=== PATIENT | male | born 1950 | race Caucasian/White ===

== ENCOUNTER 2022-10-23 19:53 | Emergency (ER) | payer MEDICARE, SELFPAY ==
[2022-10-23 19:54] VITALS: BP 231/154; PULSE 113; RESP 15; TEMP 38.1; O2SAT 97; BMI 40.8
[2022-10-23 20:23] VITALS: BP 230/149; PULSE 109; RESP 25; TEMP 38; O2SAT 96
[2022-10-23 20:25] LABS: Absolute Lymphocyte Count 0.73 X10^3/uL (0.83-4.51); Absolute Neutrophil Count 18.5 X10^3/uL (2.0-7.7); Basophil# 0.09 X10^3/uL; Basophil% 0.4 % (0-1); Eosinophil# 0.09 X10^3/uL; Eosinophils% 0.4 % (0-5); Hematocrit 51.7 % (40-54); Hemoglobin 17.4 g/dL (13.0-16.5); Lymphocyte # 0.73 X10^3/ul (0.83-4.51); Lymphocyte % 3.5 % (19-41); Mean Corp Hgb Conc 33.7 g/dL (32-36); Mean Corpuscular Hgb 28.9 pg (27.0-32.0); Mean Corpuscular Volume 85.9 fL (80-94); Mean Platelet Vol. 9.6 fl (6.2-12.0); Monocyte# 1.31 X10^3/uL; Monocyte% 6.3 % (0-10); NRBC Flagged by Analyzer 0 % (0-5); Neutrophil # 18.52 X10^3/uL (2.7-7.7); Neutrophil % 89.1 % (47-70); Platelet Count 403 K/mm3 (150-450); RBC Distribution Width CV 14.6 % (11.6-14.6); RBC Distribution Width SD 45.7 fl (35.1-43.9); Red Blood Count 6.02 M/mm3 (4.6-6.2); White Blood Count 20.8 K/mm3 (4.4-11.0)
[2022-10-23] MEDS: 0.9% Normal Saline 1,000 ML 999 ML IV ×2 (20:39→21:42)
--- NOTE | 2022-10-23 20:45 | RAD_ITS ---
STUDY: X-RAY CHEST REASON FOR EXAM: Male, 72 years old. Nausea and diarrhea and fever beginning today. Frequent urination. TECHNIQUE: PA and lateral views of the chest. COMPARISON: None. FINDINGS: The lungs are clear and expanded. There is no demonstrated pleural abnormality. Normal size heart. Normal mediastinum and chance. Normal visualized pulmonary arteries. There is atherosclerotic mild calcification of the aortic arch with tortuosity. There are diffuse degenerative changes of the visualized thoracic spine. There is degenerative osteoarthritis of the bilateral shoulders. There is no demonstrated abnormality of the visualized soft tissue structures of the upper abdomen. RAD/Chest PA and Lateral IMPRESSION: Degenerative changes, as described above. No demonstrated acute cardiopulmonary process. Electronically Signed: Tommy Mcleod DO at 21:00 EDT ,
[2022-10-23 20:46] LABS: AST(SGOT) 18 U/L (15-37); Alanine Aminotransfer ALT/SGPT 26 U/L (16-61); Albumin, Serum 4.1 g/dL (3.2-5.0); Alkaline Phosphatase 78 U/L (45-117); Anion Gap 9 (5-15); BUN 20 mg/dL (7-18); BUN/Creat Ratio 17.1 RATIO (10-20); CPK Total, Creatine Kinase 62 U/L (39-308); Calcium,Total 9.1 mg/dL (8.5-10.1); Chloride 103 mmol/L (98-107); Creatinine, Serum 1.17 mg/dL (0.70-1.30); EST Glomerular Filtration Rate 66 mL/min (>60); Est Glom Filt Rate - Afr Amer 79 mL/min (>60); Estimated Creatinine Clearance 72.13 ml/min; Glucose 126 mg/dL (74-106); Potassium 3.3 mmol/L (3.5-5.1); Protein, Total 8.1 g/dL (6.4-8.2); Sodium Level 138 mmol/L (136-145)
[2022-10-23 20:54] LABS: Lactic Acid 1.4 mmol/L (0.4-1.9)
[2022-10-23] MEDS: hydrALAZINE 20 MG/ML Vial IV (20:57)
[2022-10-23 20:58] VITALS: BP 223/129; PULSE 112; RESP 23; TEMP 38; O2SAT 93
[2022-10-23] MEDS: Acetaminophen 325 MG Tablet 650 MG PO (21:18)
[2022-10-23 21:20] VITALS: BP 188/101; PULSE 113; RESP 19; O2SAT 96
--- NOTE | 2022-10-23 21:24 | EX.ED.DYSGE1 ---
HPI History of Present Illness Chief Complaint: General Illness Narrative Narrative: Patient is a 72-year-old male who is presenting to the ER with chief complaint of 1 day of fever, 1 episode of diarrhea today, minimal abdominal cramping earlier today. Patient currently feels fine, but feels like he does have a fever. Patient blood pressure was significantly elevated in triage, this was rechecked several times. Patient states he has been told he has elevated blood pressure for the past 20 years, patient states that he is immune to medicine and knows that he should be taking medication but does not want to. Patient has been on diuretics previously and did not like them. Patient is in sales, patient does a lot of traveling. Patient takes [id number] prostate medication to help him with urinary frequency. Patient has run out of that medicine in the past 3 days, so patient has had increased urinary frequency in the past few days secondary to not taking his semq-vnp-synsqwt/off the Internet medication to help with prostate. Patient has never had his prostate checked before. Patient has no PCP in over 20 years. Patient is most concerned about his fever and not getting his or autistic child sick at home. Patient currently looks well. Patient has no headache, neck pain. No chest pain or shortness of breath. No abdominal pain, nausea or vomiting at this time. Patient has had no significant abdominal pain at all today. No other acute complaints. Patient knows that he has had over 20 years of medical noncompliance. He does not know if he has any diabetes, cholesterol, enlarged prostate issues, he does know that he should be taking blood pressure medication. He has never had a heart attack or stroke. [facility] Medical History (Updated 10/23/22 @ 21:[address] Alvarez Torres, DO) Hypertension Home Medications metoprolol succinate 50 mg tablet,extended release 24 hr 50 mg PO DAILY #20 tabs 10/23/22 [Rx Last Taken Unknown] Allergy/AdvReac Type Severity Reaction Status Date / Time No Known Allergies Allergy Verified 10/23/22 19:59 Social History Smoking Status: Never smoker ROS ROS ED ROS Narrative REVIEW OF SYSTEMS: Unless otherwise stated in this report the patient's positive and negative responses for review of systems for constitutional, eyes, ENT, cardiovascular, respiratory, gastrointestinal, neurological, , musculoskeletal, and integument systems and related systems to the presenting problem are either stated in the history of present illness or were not pertinent or were negative for the symptoms and/or complaints related to the presenting medical problem. EXAM Physical Exam Narrative Exam Narrative: Vital signs reviewed and patient is not hypoxic. General: The patient appears well and in no apparent distress. Patient is resting comfortably on cart. Not toxic, lethargic, or listless. Skin: Warm, dry, no pallor noted. There is no rash noted. Head: Normocephalic, atraumatic, slightly flushed face; no carotid bruits bilateral. Eye: Normal conjunctiva, no drainage, EOMI. PERRL. Ears, Nose, Mouth, and Throat: oral mucosa is moist. Nares patent. Mouth without vesicles. Cardiovascular: Regular Rate and Rhythm, no murmurs, gallops, or rubs Respiratory: Patient is in no distress, no accessory muscle use, lungs are clear to auscultation, no wheezing, rales or rhonchi Back: non-tender, no CVA tenderness bilaterally to percussion. NO CTLS midline or paraspinal tenderness to palpation. GI: Soft, obese, no tenderness to palpation, no masses appreciated. No rebound, guarding, or rigidity noted. Musculoskeletal: The patient has full range of motion of all extremities and joints with no difficulty. Patient has no motor, no sensory deficits. Neurological: A&O x4, normal speech, no focal neurological deficits. Psychiatric: Cooperative Patient is well aware of his elevated heart rate, and his elevated blood pressure. Patient is having asymptomatic hypertension. Patient has no headache, chest pain, shortness of breath, no syncopal episodes recently. Const Vital Signs: 10/23/22 19:54 10/23/22 20:04 10/23/22 20:23 Temperature 100.6 F H 100.4 F H Temperature Source Temporal Oral Pulse Rate 113 H 109 H Respiratory Rate 15 25 H Respiratory Effort Normal Respiratory Pattern Normal Blood Pressure 231/154 H 230/149 H Blood Pressure Mean 179 176 Pulse Ox 97 96 Oxygen Delivery Method Room Air Room Air 10/23/22 20:58 10/23/22 21:20 Temperature 100.4 F H Temperature Source Oral Pulse Rate 112 H 113 H Respiratory Rate 23 H 19 H Respiratory Effort Respiratory Pattern Blood Pressure 223/129 H 188/101 H Blood Pressure Mean 160 130 Pulse Ox 93 96 Oxygen Delivery Method Room Air Room Air MDM MDM MDM Narrative Medical decision making narrative: Initially patient's vital signs were meeting sepsis measures. Sepsis protocol was initiated. Patient was given Tylenol for fever. Patient looks well through initial history and physical, patient does not look toxic or septic at all. Patient is well aware of his over 20 years of medical noncompliance with hypertension. 10 minutes was spent discussing risk and benefits of patient continuing to not treat his hypertension. Patient understands he is a significant risk for cardiovascular events, including stroke, MA, and . Patient is well aware of his continued medical noncompliance and outcomes. Patient was wanting a PCP to be referred to him. I did speak to patient's brother on the phone with patient in the room as well, patient's brother takes metoprolol 100 mg daily. Patient was asking if I can start that medication for him. Patient understands that every medication that is different for different people, but I will start him on metoprolol 50 mg tablets daily until he can follow-up with PCP. Patient potassium was 3.3, oral potassium was given to the patient. Patient was given IV fluids. Patient was given Tylenol for fever. Reasons on why to return to the ER were discussed at bedside. Patient is having asymptomatic hypertension and medical noncompliance for over 20 years. Patient is very thankful for time and help today, patient was very pleasant to speak to and take care of. No questions at discharge. Patient understands that he needs to have a complete physical exam, complete annual blood work, checking urine samples, checking PSA, during prostate exams, prophylactic colonoscopies, and typical prophylactic and preventative medication and treatments with the PCP. Patient understands this, was thankful for help. Lab Data Attestation: I reviewed the patient's lab results. Labs: Laboratory Results - last 24 hr 10/23/22 10/23/22 10/23/22 20:14 20:14 20:14 WBC 20.8 H RBC 6.02 Hgb 17.4 H Hct 51.7 MCV 85.9 MCH 28.9 MCHC 33.7 RDW Std Deviation 45.7 H RDW Coeff of Tena 14.6 Plt Count 403 MPV 9.6 Immature Gran % (Auto) 0.300 Neut % (Auto) 89.1 H Lymph % (Auto) 3.5 L Briscoe % (Auto) 6.3 Eos % (Auto) 0.4 Baso % (Auto) 0.4 Absolute Neuts (auto) 18.5 H Absolute Lymphs (auto) 0.73 L Nucleated RBC % 0 PT 13.0 INR 1.0 Sodium 138 Potassium 3.3 L Chloride 103 Carbon Dioxide 26.0 Anion Gap 9 BUN 20 H Creatinine 1.17 Estim Creat Clear Calc 72.13 Est GFR (MDRD) Af Amer 79 Est GFR (MDRD) Non-Af 66 BUN/Creatinine Ratio 17.1 Glucose 126 H Lactic Acid Calcium 9.1 Total Bilirubin 0.90 AST 18 ALT 26 Alkaline Phosphatase 78 Total Creatine Kinase 62 Total Protein 8.1 Albumin 4.1 Globulin 4.0 Albumin/Globulin Ratio 1.0 10/23/22 20:14 WBC RBC Hgb Hct MCV MCH MCHC RDW Std Deviation RDW Coeff of Tena Plt Count MPV Immature Gran % (Auto) Neut % (Auto) Lymph % (Auto) Briscoe % (Auto) Eos % (Auto) Baso % (Auto) Absolute Neuts (auto) Absolute Lymphs (auto) Nucleated RBC % PT INR Sodium Potassium Chloride Carbon Dioxide Anion Gap BUN Creatinine Estim Creat Clear Calc Est GFR (MDRD) Af Amer Est GFR (MDRD) Non-Af BUN/Creatinine Ratio Glucose Lactic Acid 1.4 Calcium Total Bilirubin AST ALT Alkaline Phosphatase Total Creatine Kinase Total Protein Albumin Globulin Albumin/Globulin Ratio Radiography Chest X-Ray - ED: 2 View and Read by ED Physician Diagnostic Testing: Chest x-ray shows no acute cardiopulmonary disease, no infiltrate, no effusion. Diffuse DJD noted, no other acute infection Discharge Plan Triage Chief Complaint: General Illness ED Provider: Alvarez Torres Dx/Rx/DC Orders Clinical Impression: Acute febrile illness, Diarrhea, Hypertension, Medical non-compliance, Hypokalemia Instructions: Hypertension Dc, Hypokalemia Dc, ED Diarrhea, Unknown Cause, ED Fever Control (Adult) Prescriptions: New metoprolol succinate 50 mg tablet extended release 24 hr 50 mg PO DAILY Qty: 20 0RF Primary Care Provider: Care Physician,No Primary Referrals: Lashonda Senior MD [Med Staff - Co Founder And President] - Care Physician,No Primary [Primary Care Provider] - Disposition Disposition: Home, Self Care
[2022-10-23] MEDS: Potassium Chloride Oral Tablet 20 MEQ 60 MEQ PO (21:46)
== END 2022-10-23 22:00 | disposition home or self-care (01) ==
PROVIDERS: Emergency Provider Emergency Medicine; Visit Provider Emergency Medicine
DX: I10 Essential (primary) hypertension (principal); E87.6 Hypokalemia; Z91.199 Patient's noncompliance with other medical treatment and regimen due to unspecified reason; R19.7 Diarrhea, unspecified; Z79.899 Other long term (current) drug therapy
CPT/HCPCS: 71046; 80053; 82550; 83605; 85025; 85610; 87040; 96361; 96374; 99284; J7030; A4216